=== PATIENT | female | born 2000 | race African-American/Black ===

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

== ENCOUNTER 2018-01-11 17:35 | Observation (INO) | payer MEDICAID ==
[~2018-01-11] VITALS: Ht 160 cm; Wt 72.6 kg
[2018-01-11] MEDS ORDERED: TERBUTALINE SULFATE 1 MG/ML 1ML VIAL SC ONE (18:11)
[2018-01-11] MEDS ORDERED: TERBUTALINE SULFATE 1 MG/ML 1ML VIAL SC SCH (18:15)
[2018-01-11] MEDS ORDERED: NIFEdipine 10 MG CAP ONE (18:40)
[2018-01-11] MEDS: NIFEdipine 10 MG CAP PO ONE (18:45)
== END 2018-01-11 19:55 | disposition home or self-care (01) | DRG 565 ==
LOC: LDRP 17:35 → MERGE 17:35
PROVIDERS: ADMIT Obstetrics & Gynecology; ATTEND Obstetrics & Gynecology
DX: O47.03 False labor before 37 completed weeks of gestation, third trimester (principal); Z3A.34 34 weeks gestation of pregnancy
CPT/HCPCS: 59025; 81002; G0378; J3105; 96372

== ENCOUNTER 2018-02-17 15:15 | Observation (INO) | payer MEDICAID ==
[2018-02-17] MEDS ORDERED: PREN-96 PO (16:01)
== END 2018-02-17 15:50 | disposition home or self-care (01) | DRG 566 ==
LOC: LDRP 15:15
PROVIDERS: ADMIT Specialist; ATTEND Specialist
DX: O48.0 Post-term pregnancy (principal); Z3A.40 40 weeks gestation of pregnancy
CPT/HCPCS: 59025; 76818; 81002; G0378

== ENCOUNTER 2018-02-19 10:55 | Observation (INO) | payer MEDICAID ==
[~2018-02-19 10:55] MED LIST changes: -LORA-622 PO; -NAS17NSL; +PREN-96 PO
[2018-02-20] MEDS ORDERED: ACE650RS PR (11:00)
== END 2018-02-19 12:25 | disposition home or self-care (01) | DRG 566 ==
LOC: LDRP 10:55
PROVIDERS: ADMIT Obstetrics & Gynecology; ATTEND Obstetrics & Gynecology
DX: O62.9 Abnormality of forces of labor, unspecified (principal); Z3A.00 Weeks of gestation of pregnancy not specified
CPT/HCPCS: 59025; 76818; 81002; G0378

== ENCOUNTER 2018-02-20 10:40 | Observation (INO) | payer MEDICAID ==
[2018-02-20] MEDS ORDERED: ACE650RS PR (11:00)
== END 2018-02-20 12:05 | disposition home or self-care (01) | DRG 566 ==
LOC: LDRP 10:40
PROVIDERS: ADMIT Specialist; ATTEND Specialist
DX: O48.0 Post-term pregnancy (principal); O23.43 Unspecified infection of urinary tract in pregnancy, third trimester; O62.9 Abnormality of forces of labor, unspecified; R30.0 Dysuria; O26.893 Other specified pregnancy related conditions, third trimester; N89.8 Other specified noninflammatory disorders of vagina; Z3A.40 40 weeks gestation of pregnancy
CPT/HCPCS: 59025; 76815; 81002; G0378

== ENCOUNTER 2018-02-21 18:57 | Observation (INO) | payer MEDICAID ==
[~2018-02-21 18:57] MED LIST changes: +ACE650RS PR
== END 2018-02-21 20:36 | disposition home or self-care (01) | DRG 566 ==
LOC: LDRP 18:57
PROVIDERS: ADMIT Specialist; ATTEND Specialist
DX: O48.0 Post-term pregnancy (principal); O26.893 Other specified pregnancy related conditions, third trimester; N89.8 Other specified noninflammatory disorders of vagina; O62.9 Abnormality of forces of labor, unspecified; Z3A.40 40 weeks gestation of pregnancy
CPT/HCPCS: 59025; 76818; 81002; G0378

== ENCOUNTER 2019-09-12 11:06 | Emergency (ER) | payer MEDICAID ==
[~2019-09-12] VITALS: Ht 160 cm; Wt 91.2 kg
[2019-09-12 11:48] LABS: Urine Bacteria FEW /hpf (None Seen); Urine Blood 1+ /uL (Negative); Urine Mucus FEW (None Seen); Urine Specific Gravity 1.018 (1.001-1.035); Urine WBC 3 /hpf (0 - 5)
[2019-09-12 13:10] VITALS: BP 130/76
[2019-09-12 13:15] LABS: Basophils # (auto) 0 10 ^3/uL (0-0.2); Basophils % (auto) 0.8 % (0.0-2.0); Eosinophils # (auto) 0.1 10 ^3/uL (0-0.8); Eosinophils % (auto) 2.2 % (0.0-7.0); Hematocrit 40.6 % (36.0-46.0); Hemoglobin 13.7 g/dL (12.2-16.2); Lymphocytes # (auto) 1.9 10 ^3/uL (0.4-5.4); Lymphocytes % (auto) 36.5 % (10.0-50.0); Mean Corpuscular Hgb Conc. 33.8 g/dL (32.0-36.0); Mean Corpuscular Volume 85.8 fL (80.0-100.0); Monocytes # (auto) 0.5 10 ^3/uL (0-1.3); Monocytes % (auto) 9.1 % (0.0-12.0); Neutrophils # (auto) 2.6 10 ^3/uL (1.6-8.6); Neutrophils % (auto) 51.4 % (37.0-80.0); Nucleated Red Blood Cells % 0.2 %; Platelet Count (auto) 272 10^3/uL (140-450); Red Blood Cells 4.73 10^6/uL (4.0-5.20); Red Cell Distribution Width 14.2 % (11.8-14.3); White Blood Cell 5.1 10^3/uL (4.4-10.8)
== END 2019-09-12 13:53 | disposition home or self-care (01) ==
LOC: ER 11:06
DX: O20.9 Hemorrhage in early pregnancy, unspecified (principal); O23.41 Unspecified infection of urinary tract in pregnancy, first trimester; Z3A.12 12 weeks gestation of pregnancy
CPT/HCPCS: 36415; 81001; 84702; 85025

== ENCOUNTER 2020-02-06 20:21 | Emergency (ER) | payer BC, MEDICAID ==
[~2020-02-06] VITALS: Ht 160 cm; Wt 79.4 kg
[2020-02-06 20:45] VITALS: BP 128/74
[2020-02-06 21:18] LABS: Basophils # (auto) 0.1 10 ^3/uL (0-0.2); Basophils % (auto) 0.6 % (0.0-2.0); Eosinophils # (auto) 0.1 10 ^3/uL (0-0.8); Hematocrit 41.3 % (36.0-46.0); Hemoglobin 14.2 g/dL (12.2-16.2); Lymphocytes # (auto) 2.1 10 ^3/uL (0.4-5.4); Lymphocytes % (auto) 21.5 % (10.0-50.0); Mean Corpuscular Hemoglobin 29.3 pg (28.0-32.0); Mean Corpuscular Hgb Conc. 34.4 g/dL (32.0-36.0); Mean Corpuscular Volume 85.1 fL (80.0-100.0); Monocytes # (auto) 0.8 10 ^3/uL (0-1.3); Neutrophils # (auto) 6.8 10 ^3/uL (1.6-8.6); Neutrophils % (auto) 68.9 % (37.0-80.0); Nucleated Red Blood Cells % 0.1 %; Platelet Count (auto) 294 10^3/uL (140-450); Red Blood Cells 4.85 10^6/uL (4.0-5.20); Red Cell Distribution Width 13.9 % (11.8-14.3); White Blood Cell 9.8 10^3/uL (4.4-10.8)
[2020-02-06 21:24] LABS: Urine Bacteria FEW /hpf (None Seen); Urine Blood 2+ /uL (Negative); Urine Mucus FEW (None Seen); Urine WBC 22 /hpf (0 - 5)
== END 2020-02-06 22:48 | disposition home or self-care (01) ==
LOC: ER 20:22
DX: O20.0 Threatened abortion (principal); O23.41 Unspecified infection of urinary tract in pregnancy, first trimester; Z3A.12 12 weeks gestation of pregnancy
CPT/HCPCS: 36415; 76801; 81001; 84702; 85025

== ENCOUNTER 2020-08-13 13:31 | Observation (INO) | payer OTHER, MEDICAID ==
[~2020-08-13] VITALS: Ht 157.5 cm; Wt 90.7 kg
[2020-08-13] MEDS ORDERED: CEPHALEXIN 250 MG CAP PO ONE (14:30)
== END 2020-08-13 16:46 | disposition home or self-care (01) ==
LOC: LDRP 13:31
PROVIDERS: ADMIT Obstetrics & Gynecology; ATTEND Obstetrics & Gynecology
DX: O42.92 Full-term premature rupture of membranes, unspecified as to length of time between rupture and onset of labor (principal); Z3A.38 38 weeks gestation of pregnancy
CPT/HCPCS: 59025; 76805; 81002; 84112; 94760; G0378; Q0114

== ENCOUNTER 2021-08-04 19:22 | Emergency (ER) | payer BC, MEDICAID ==
[~2021-08-04] VITALS: Ht 160 cm; Wt 74.8 kg
[~2021-08-04 19:22] MED LIST changes: -ACE650RS PR
[2021-08-04 22:57] VITALS: BP 118/71
== END 2021-08-04 22:11 | disposition home or self-care (01) ==
LOC: ER 19:41
DX: S01.432A Puncture wound without foreign body of left cheek and temporomandibular area, initial encounter (principal); S01.431A Puncture wound without foreign body of right cheek and temporomandibular area, initial encounter; Z79.899 Other long term (current) drug therapy; X58.XXXA Exposure to other specified factors, initial encounter; Y93.89 Activity, other specified; Y92.89 Other specified places as the place of occurrence of the external cause; Y99.8 Other external cause status

== ENCOUNTER 2021-11-23 21:09 | Emergency (ER) | payer BC, MEDICAID, OTHER ==
[~2021-11-23] VITALS: Ht 160 cm; Wt 81.8 kg
[2021-11-24 00:20] VITALS: BP 98/68
== END 2021-11-24 00:27 | disposition home or self-care (01) ==
LOC: ER 21:13
DX: S16.1XXA Strain of muscle, fascia and tendon at neck level, initial encounter (principal); R51.9 Headache, unspecified; M54.9 Dorsalgia, unspecified; V43.52XA Car driver injured in collision with other type car in traffic accident, initial encounter; Y93.89 Activity, other specified; Y92.410 Unspecified street and highway as the place of occurrence of the external cause; Y99.8 Other external cause status
CPT/HCPCS: 70450; 71045; 71250; 72125; 74176

== ENCOUNTER 2022-03-14 03:15 | Emergency (ER) | payer BC, MEDICAID ==
[~2022-03-14] VITALS: Ht 160 cm; Wt 85.3 kg
[2022-03-14 05:09] LABS: Basophils # (auto) 0.1 10 ^3/uL (0-0.2); Basophils % (auto) 0.7 % (0.0-2.0); Eosinophils # (auto) 0.1 10 ^3/uL (0-0.8); Eosinophils % (auto) 0.9 % (0.0-7.0); Hematocrit 38.7 % (36.0-46.0); Hemoglobin 13.2 g/dL (12.2-16.2); Lymphocytes # (auto) 1.7 10 ^3/uL (0.4-5.4); Lymphocytes % (auto) 18.6 % (10.0-50.0); Mean Corpuscular Hemoglobin 27.8 pg (28.0-32.0); Mean Corpuscular Hgb Conc. 34.1 g/dL (32.0-36.0); Mean Corpuscular Volume 81.7 fL (80.0-100.0); Monocytes # (auto) 0.6 10 ^3/uL (0-1.3); Monocytes % (auto) 6.4 % (0.0-12.0); Neutrophils # (auto) 6.8 10 ^3/uL (1.6-8.6); Neutrophils % (auto) 73.4 % (37.0-80.0); Nucleated Red Blood Cells % 0.1 %; Red Blood Cells 4.74 10^6/uL (4.0-5.20); Red Cell Distribution Width 14.4 % (11.8-14.3); White Blood Cell 9.3 10^3/uL (4.4-10.8)
[2022-03-14] MEDS ORDERED: ONDA-144 PO (05:18)
[2022-03-14 05:55] LABS: Albumin 3.5 g/dL (3.4-5.0); Calcium 8.8 mg/dL (8.5-10.1); Potassium 3.9 mmol/L (3.5-5.1)
[2022-03-14 06:01] LABS: BUN/Creatinine Ratio 12.5; Bilirubin, Total 0.3 mg/dL (0.2-1.0); Total Protein 6.8 g/dL (6.4-8.2)
[2022-03-14 07:00] VITALS: BP 118/65
[2022-03-14 08:16] LABS: Urine Bacteria NONE SEEN /hpf (None Seen); Urine Blood 3+ /uL (Negative); Urine Mucus FEW (None Seen); Urine Specific Gravity 1.026 (1.001-1.035); Urine WBC 12 /hpf (0 - 5)
== END 2022-03-14 07:03 | disposition home or self-care (01) ==
LOC: ER 03:19
DX: O20.8 Other hemorrhage in early pregnancy (principal); Z79.899 Other long term (current) drug therapy; Z3A.16 16 weeks gestation of pregnancy
CPT/HCPCS: 36415; 80053; 81001; 84702; 85025